=== PATIENT | male | born 1950 | race Caucasian/White ===

== ENCOUNTER 2017-12-28 01:31 | Emergency (ER) | payer MEDICARE, OTHER ==
[~2017-12-28] VITALS: Ht 165.1 cm; Wt 61.2 kg
[2017-12-28 01:31] VITALS: BP 123/95
[~2017-12-28 01:31] MED LIST: NITROGLYCERIN; PERCOCET; VICODIN
--- NOTE | 2017-12-28 02:13 | Emergency Room Report ---
History of Present Illness General Chief Complaint: Behavioral Complaint Source: EMS Present Illness HPI 67M brought in by police on a 5150 due to being loud/screaming, breaking objects where he was. On police arrival pt. was naked and throwing items. He had taken screen off window. There was no report of any injury or trauma. Hx. limited due to patient not given me any useful information. He is in restraints and just keeps asking me to remove restraints. There is no old EMR here. Allergies: Coded Allergies: No Known Allergies (Unverified , 05/15/12) Nursing Documentation-[facility] Past Medical History: No Stated History Hx Cardiac Problems: Yes - ANGINA, BACK PAIN Physical Exam Vital Signs Date Time Temp Pulse Resp B/P (MAP) Pulse Ox O2 Delivery O2 Flow Rate FiO2 12/28/17 00:52 98.4 86 16 123/95 99 Room Air 98.4 Medical Decision Making Diagnostic Impression: Primary Impression: Methamphetamine abuse ER Course Pt. is mildly agitated, but he is alert and oriented. Benzo, meth, cocaine on board. He is on 5150 but may be better in several hours. I will ask am MD to re-check and if improved, if Dr. Taylor is available to clear/see patient. Otherwise will require (geriatric?) psych bed. Last Vital Signs Date Time Temp Pulse Resp B/P (MAP) Pulse Ox O2 Delivery O2 Flow Rate FiO2 12/28/17 00:52 98.4 86 16 123/95 99 Room Air 98.4 Patient Instructions: Stimulant Use Disorder-Christopher Alvarado M.D. Dec 28, 2017 02:13
[2017-12-28 03:04] LABS: APPEARANCE,URINE CLEAR; BILIRUBIN, URINE NEGATIVE (NEGATIVE); COLOR,URINE PALE YELLOW; GLUCOSE, URINE (UA) NEGATIVE (NEGATIVE); KETONES,URINE 2+ (NEGATIVE); LEUKOCYTE ESTERASE ,URINE 1+ (NEGATIVE); NITRITE,URINE NEGATIVE (NEGATIVE); PH,URINE 6 (4.5-8.0); PROTEIN,URINE NEGATIVE (NEGATIVE); UROBILINOGEN,URINE NORMAL MG/DL (0.0-1.0)
[2017-12-28 03:05] LABS: BASOPHILS % (AUTO) 0.6 % (0.0-2.0); EOSINOPHILS % (AUTO) 2.2 % (0.0-3.0); HEMATOCRIT 49.4 % (42.0-52.0); HEMOGLOBIN 16.4 G/DL (14.2-18.0); MEAN CORPUSCULAR VOLUME 83 FL (80-99); MONOCYTES % (AUTO) 7.4 % (1.0-10.0); NEUTROPHILS % (AUTO) 71.8 % (45.0-75.0); PLATELET COUNT 335 K/UL (150-450); RED BLOOD COUNT 5.95 M/UL (4.70-6.10); RED CELL DISTRIBUTION WIDTH 12.5 % (11.6-14.8); WHITE BLOOD COUNT 12.7 K/UL (4.8-10.8)
[2017-12-28 03:14] LABS: ANION GAP 8 mmol/L (5-15); BLOOD UREA NITROGEN 21 mg/dL (7-18); CALCIUM 9.4 MG/DL (8.5-10.1); CARBON DIOXIDE 26 MMOL/L (21-32); CHLORIDE 104 MMOL/L (98-107); POTASSIUM 3.7 MMOL/L (3.5-5.1); SODIUM 138 MMOL/L (136-145)
[2017-12-28 03:18] LABS: ALANINE AMINOTRANSFERASE 22 U/L (12-78); ALBUMIN 3.9 G/DL (3.4-5.0); ALKALINE PHOSPHATASE 86 U/L (46-116); ASPARTATE AMINO TRANSFERASE 24 U/L (15-37); BILIRUBIN,TOTAL 0.5 MG/DL (0.2-1.0)
[2017-12-28 03:31] VITALS: BP 135/85
[2017-12-28 05:31] VITALS: BP 124/80
[2017-12-28 10:20] VITALS: BP 137/82
[2017-12-28] MEDS ORDERED: Cephalexin 500mg cap ORAL ONE (12:15)
[2017-12-28 15:20] VITALS: BP 132/81
== END 2017-12-28 15:20 ==
LOC: EDBD 01:31 → EMR 06:00
DX: F15.10 Other stimulant abuse, uncomplicated (principal); R45.1 Restlessness and agitation; F07.9 Unspecified personality and behavioral disorder due to known physiological condition
CPT/HCPCS: 36415; 80053; 80307; 81001; 85025; 99285; G0480; 80329